=== PATIENT | male | born 1945 | race Caucasian/White ===

== ENCOUNTER 2020-07-04 02:49 | Inpatient (IN) ==
[2020-07-04] MEDS ORDERED: Naloxone 0.4 MG/ML INJ IVP PRN (04:44)
[2020-07-04] MEDS ORDERED: *HR* Heparin 5,000 UNIT/ML VIAL IVP PRN ×2 (05:20)
[2020-07-04] MEDS ORDERED: Heparin 25,000UNIT/250ML 1/2NS 25,000 UNIT/250 ML IV.SOLN IVC SCH (05:30)
[2020-07-04 05:31] LABS: Adenovirus Not Detected (Not Detect); Bordetella Pertussis Not Detected (Not Detect); Chlamydophila pneumoniae Not Detected (Not Detect); Coronavirus 229E Not Detected (Not Detect); Coronavirus HKU1 Not Detected (Not Detect); Coronavirus NL63 Not Detected (Not Detect); Coronavirus OC43 Not Detected (Not Detect); Human Metapneumovirus Not Detected (Not Detect); Human Rhinovirus/Enterovirus Not Detected (Not Detect); Influenza A Subtype 2009 H1 Not Detected (Not Detect); Influenza B Not Detected (Not Detect); Mycoplasma pneumoniae Not Detected (Not Detect); Parainfluenza Virus 1 Not Detected (Not Detect); Parainfluenza Virus 2 Not Detected (Not Detect); Parainfluenza Virus 3 Not Detected (Not Detect); Parainfluenza Virus 4 Not Detected (Not Detect); Respiratory Syncytial Virus Not Detected (Not Detect); SARS-CoV-2 Not Detected (Not Detect)
[2020-07-04] MEDS ORDERED: Morphine Sulfate 2 MG/ML SYRINGE IVP PRN (06:33)
[2020-07-04 08:39] LABS: INR 1.1; Prothrombin Time 12.8 Seconds (9.4-12.1)
[2020-07-04 08:47] LABS: Troponin I 2.89 ng/mL (< 0.04)
[2020-07-04] MEDS ORDERED: Perflutren Lipid Microsphere 1.3 ML in 0.9 % Sodium Chloride 8.7 ML IVP PRN (09:23)
[2020-07-04 09:28] LABS: Chol/HDL Ratio 2.5 (0-4.9)
[2020-07-04] MEDS: Aspirin 81 MG TAB.CHEW PO SCH (09:45)
[2020-07-04] MEDS: Metoprolol XL (24 HR) Succ 50 MG TAB.ER.24H PO SCH (10:36)
[2020-07-04] MEDS ORDERED: 0.9 % Sodium Chloride 1,000 ML ONE (10:55)
[2020-07-04] MEDS ORDERED: Heparin 1,000 UNITS/500 mL 500 ML ONE ×2 (10:56→12:07)
[2020-07-04] MEDS ORDERED: ISOVUE-370 200 ML INFUS..BTL ONE ×2 (10:56→11:38)
[2020-07-04] MEDS ORDERED: *HR* Heparin 10,000 UNIT/10 ML VIAL ONE ×2 (10:56→11:11)
[2020-07-04] MEDS ORDERED: Nitroglycerin 1,000 MCG/10 ML VIAL IV ONE (10:56)
[2020-07-04] MEDS ORDERED: *HR* Midazolam HCl 2 MG/2 ML VIAL ONE (10:57)
[2020-07-04] MEDS ORDERED: *HR* FentaNYL (PF) 100 MCG/2 ML VIAL ONE (10:57)
[2020-07-04] MEDS: 0.9 % Sodium Chloride 1,000 ML IVC SCH (14:14)
[2020-07-04] MEDS ORDERED: Albuterol 2.5 MG/3 ML NEBULIZER IH PRN (15:30)
[2020-07-04] MEDS ORDERED: Tiotropium 18 MCG inhalation IH PRN (15:30)
[2020-07-04] MEDS ORDERED: Acetaminophen 325 MG TABLET PO PRN (15:30)
[2020-07-04] MEDS: Budesonide/Formoterol 160/4.5 1 PUFF INH IH SCH (20:20)
[2020-07-04] MEDS ORDERED: Melatonin 3 MG TABLET PO SCH (21:00)
[2020-07-05 02:50] LABS: Basophils # 0.1 K/mcL (0.0-0.2); Basophils % 0.7 %; Eosinophils # 0.4 K/mcL (0.0-0.6); Eosinophils % 4.6 %; Hematocrit 41.8 % (37.5-50.1); Hemoglobin 13.9 g/dL (12.9-16.9); Immature Granulocytes % 0.3 % (0-4); Lymphocytes # 2.2 K/mcL (0.6-4.6); Mean Corpuscular HGB Conc 33.3 g/dL (31.6-35.5); Mean Corpuscular Hemoglobin 33.1 pg (28.0-33.3); Mean Corpuscular Volume 99.5 fL (83.0-100.0); Mean Platelet Volume 9.3 fL (9.4-12.4); Monocytes # 1.1 K/mcL (0.0-1.3); Monocytes % 11.9 %; Neutrophils # 5.7 K/mcL (1.6-8.9); Platelet Count 211 K/mcL (140-400); Red Cell Distribution Width 12.5 % (11.5-14.5); Segmented Neutrophils % 59.5 %; White Blood Count 9.5 K/mcL (4.3-11.1)
[2020-07-05 02:51] LABS: Hematocrit 41.9 % (37.5-50.1)
[2020-07-05 03:05] LABS: BUN/Creatinine Ratio 13 (6-26); Blood Urea Nitrogen 11 mg/dL (8-23); Blood Urea Nitrogen 12 mg/dL (8-23); Calcium 9.1 mg/dL (8.6-10.3); Carbon Dioxide 28 mEq/L (23-29); Chloride 101 mEq/L (98-107); Glucose 103 mg/dL (70-105); Osmolality,Calculated 280 (280-300); Phosphorous 3.2 mg/dL (2.7-4.5); Potassium 4.5 mEq/L (3.5-5.1); Sodium 135 mEq/L (136-145); eGFR For African Americans > 60 (> 60); eGFR For Non-African Americans > 60 (> 60)
[2020-07-05] MEDS: 0.9 % Sodium Chloride 1,000 ML IVC SCH ×2 (04:15→10:15)
[2020-07-05 07:30] VITALS: BP 119/73
[2020-07-05] MEDS: Budesonide/Formoterol 160/4.5 1 PUFF INH IH SCH (07:48)
[2020-07-05] MEDS: Aspirin 81 MG TAB.CHEW PO SCH (08:52)
[2020-07-05] MEDS: Metoprolol XL (24 HR) Succ 50 MG TAB.ER.24H PO SCH (08:52)
[2020-07-05] MEDS ORDERED: Cyanocobalamin (B-12) 1,000 MCG TABLET PO SCH (09:00)
[2020-07-05] MEDS ORDERED: Isosorbide MONOnitrate (24 HR) 30 MG TAB.ER.24H PO SCH (09:00)
[2020-07-05] MEDS ORDERED: BuPROPion XL (24 HR) 150 MG TABLET PO SCH (09:00)
[2020-07-05] MEDS ORDERED: NON-FORMULARY MEDICATION 1 EACH EACH (Ubidecarenone/Vit E Acetate [Co Q-10 100 Mg Softgel] PO SCH (09:00)
[2020-07-05] MEDS ORDERED: Cholecalciferol (D-3) 1,000 UNIT (25MCG) TABLET PO SCH (09:00)
== END 2020-07-05 13:22 | disposition home or self-care (01) | DRG 247 ==
LOC: 3BNU → SUATTDRO 04:25
PROVIDERS: ADMIT Family Medicine; ATTEND Internal Medicine